=== PATIENT | male | born 2000 | race African-American/Black ===

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

== ENCOUNTER 2020-04-03 15:39 | Emergency (ER) | payer BC ==
[2020-04-03] MEDS ORDERED: Acetaminophen 500 MG TAB ONE (16:20)
== END 2020-04-03 16:25 | disposition home or self-care (01) ==
LOC: NAV ERS 15:39
DX: S09.90XA Unspecified injury of head, initial encounter (principal); V49.40XA Driver injured in collision with unspecified motor vehicles in traffic accident, initial encounter; Y92.410 Unspecified street and highway as the place of occurrence of the external cause
CPT/HCPCS: 99283

== ENCOUNTER 2021-07-22 09:32 | Emergency (ER) | payer BC ==
[2021-07-22 22:34] LABS: SARS-CoV-2 PCR by NAA DETECTED (NotDetected)
== END 2021-07-22 10:15 | disposition home or self-care (01) ==
LOC: NAV ERS 09:32
DX: U07.1 COVID-19 (principal)
CPT/HCPCS: 99283; U0003; U0005

== ENCOUNTER 2022-04-12 17:50 | Emergency (ER) | payer OTHER, BC ==
[2022-04-12] MEDS ORDERED: Boostrix 0.5 ML (Tdap) VIAL (>/=7 yrs of age) ONE (18:03)
[2022-04-12] MEDS ORDERED: Bacitracin 1 PK ONE (18:03)
[2022-04-12] MEDS ORDERED: Cephalexin 250 MG CAP ONE (18:22)
== END 2022-04-12 18:32 | disposition home or self-care (01) ==
LOC: NAV ERS 17:50
DX: S91.331A Puncture wound without foreign body, right foot, initial encounter (principal); W45.0XXA Nail entering through skin, initial encounter
CPT/HCPCS: 90471; 90715

== ENCOUNTER 2022-05-23 08:24 | Emergency (ER) | payer BC ==
[2022-05-23] MEDS ORDERED: Acetaminophen 500 MG TAB ONE (08:59)
== END 2022-05-23 09:35 | disposition home or self-care (01) ==
LOC: NAV ERS 08:24
DX: R50.9 Fever, unspecified (principal); Z20.822 Contact with and (suspected) exposure to COVID-19
CPT/HCPCS: 87804; 99283; U0003; U0005

== ENCOUNTER 2023-07-26 16:12 | Emergency (ER) | payer BC ==
[2023-07-26] MEDS ORDERED: Ondansetron ODT 4 MG TAB ONE (16:56)
== END 2023-07-26 17:45 | disposition home or self-care (01) ==
LOC: NAV ERS 16:12
DX: K52.9 Noninfective gastroenteritis and colitis, unspecified (principal)
CPT/HCPCS: 99283; Q0162